=== PATIENT | male | born 1985 | race Caucasian/White ===

== ENCOUNTER 2022-05-15 16:44 | Emergency (ER) | payer MEDICAID, SELFPAY ==
[2022-05-15 16:56] VITALS: BP 159/92; PULSE 88; RESP 16; TEMP 36.6; O2SAT 96
--- NOTE | 2022-05-15 19:11 | ED.GENADULT ---
HPI - General Adult General Chief complaint: Skin/Abscess/Foreign Body Stated complaint: Rash on the back of R leg Time Seen by Provider: 05/15/22 18:42 History of Present Illness HPI narrative: This 36-year-old male comes in with an abscess in the posterior aspect of his right lower extremity just above the knee joint. He states that this started about 4- 5 days ago and has worsened since then. He was able to express some purulent fluid yesterday. He does not have any fevers. His symptoms have been worsening throughout this time. Related Data Home Medications Medication Instructions Recorded Confirmed No Known Home Medications 05/15/22 05/15/22 Allergies Allergy/AdvReac Type Severity Reaction Status Date / Time No Known Drug Allergies Allergy Verified 05/15/22 17:01 Review of Systems Status of ROS: Reports: 10 or more systems reviewed and unremarkable except as noted in History and below Narrative: Constitutional: No fevers, no weight gain or loss. Eyes: No discharge. No vision changes. HENT: No congestion, no sore throat, no ear pain. Cardiovascular: No chest pain, no palpitations. Respiratory: No shortness of breath, no wheezes, no cough. Gastrointestinal: No abdominal pain, no vomiting, no diarrhea. Genitourinary: No dysuria, no hematuria. Musculoskeletal: Normal range of motion. Skin: No rashes, no pruritis. Redness in the posterior aspect of his right lower extremity as described above. Neurological: No dizziness, weakness, sensory change, speech change. Endo/Heme/Allergies: No bruising or bleeding. No polydipsia. Pysch: no suicidality, no anxiety, no insomnia. All other systems reviewed and are negative. [facility] Social History Smoking Status: Former smoker Do you use any of these nicotine containing products: None Second hand tobacco smoke exposure: No How often do you have a drink containing alcohol: monthly or less How often do you have six or more drinks on one occasion: Never AUDIT-C Alcohol total score: 1 Non-prescribed substance use: denies use service: No Exam Narrative: Exam Narrative: Constitutional: Well-developed, well-nourished, no acute distress. HEENT: Normocephalic, atraumatic. Neck: Normal range of motion. Nontender. Supple. Heart: Intact distal pulses. Lungs: No chest discomfort. No wheezes, rhonchi, or rales. Abdomen: Nontender. Back: Normal range of motion. Extremities: Normal range of motion. No injury. Skin: No rash. Warm. No pallor. There is a large area of erythema and swelling with warmth in the posterior aspect of his right lower extremity just above the knee. There is an opening where there was some drainage but no continued drainage currently. The border of the erythema spans a diameter of approximately 15 cm. Neurologic: No altered sensation. No weakness. Alert and oriented. Psychiatric: No suicidality. No anxiety or depression. No insomnia. Nursing notes and vitals signs are reviewed. Const: Vital Signs, click to edit/add: Vital Signs - 24 hr 05/15/22 16:56 05/15/22 19:56 Temperature 97.9 F Pulse Rate [Pulse Oximeter] 88 100 Respiratory Rate 16 16 Blood Pressure [Ri ght Upper Arm] 159/92 H 139/94 H Pulse Oximetry 96 98 Oxygen Delivery Me thod Room Air Room Air Course Vital Signs Vital signs: Initial Vital Signs Temperature 97.9 F 05/15/22 16:56 Temperature Source Temporal Artery Scan 05/15/22 16:56 Pulse Rate 88 05/15/22 16:56 Pulse Rhythm 05/15/22 16:56 Respiratory Rate 16 05/15/22 16:56 Blood Pressure 159/92 H 05/15/22 16:56 Blood Pressure Mean 114 05/15/22 16:56 Blood Pressure Position Sitting 05/15/22 16:56 Pulse Oximetry 96 05/15/22 16:56 Oxygen Delivery Method 05/15/22 16:56 Vital Signs Temperature 97.9 F 05/15/22 16:56 Pulse Rate 88 05/15/22 16:56 Respiratory Rate 16 05/15/22 16:56 Blood Pressure 159/92 H 05/15/22 16:56 Pulse Oximetry 96 05/15/22 16:56 Oxygen Delivery Method 05/15/22 16:56 Temperature 97.9 F 05/15/22 16:56 Pulse Rate 100 05/15/22 19:56 Respiratory Rate 16 05/15/22 19:56 Blood Pressure 139/94 H 05/15/22 19:56 Pulse Oximetry 98 05/15/22 19:56 Oxygen Delivery Method 05/15/22 19:56 Medical Decision Making MDM Narrative Medical decision making narrative: This patient comes in with an abscess and surrounding cellulitis in the right lower extremity. I did use bedside ultrasound to evaluate for a drainable abscess. There was no such finding sufficient enough to warrant drainage at this time. He did receive an intramuscular injection of Rocephin 1 g. A prescription for Augmentin is provided. I describe signs and symptoms that would indicate a need for return and re-evaluation. Discharge Plan Discharge Clinical Impression: Abscess of skin or subcutaneous tissue Patient Disposition: Home, Self-Care Condition: Unchanged Additional Instructions: Take medication as prescribed. Follow up with MD or return if worsening. Prescriptions: No Action No Known Home Medications Follow Up/Referrals: Provider,Not a Local [Primary Care Provider] - Stand Alone Forms: [employer] Info Instructions
[2022-05-15] MEDS: LIDOCAINE 1% 5 ml (pf) 5 ML VIAL 2.1 ML IM (19:14)
[2022-05-15] MEDS: cefTRIAXone 1 GM VIAL IM (19:14)
[2022-05-15 19:56] VITALS: BP 139/94; PULSE 100; RESP 16; O2SAT 98
== END 2022-05-15 20:17 | disposition home or self-care (01) ==
PROVIDERS: Emergency Provider Emergency Medicine Emergency Medical Services
DX: L02.415 Cutaneous abscess of right lower limb (principal)
CPT/HCPCS: 96372; 99283; 99284; J0696

== ENCOUNTER 2024-06-12 13:53 | Emergency (ER) | payer MEDICAID, SELFPAY ==
--- OUTSIDE RECORDS SUMMARY | 2024-06-12 13:55 | XMS_ITS | Clinical Summary ---
Author Organization [facility] er Address [address] [place] [address] Care Team Providers Care Patient Coordinator Front Desk Name Role Phone None, Pcp Primary Care Provider Unavailabl e Allergies No known active allergies Medications nicotine (Nicoderm CQ) 14 MG/24HRIndicati ons:Tobacco use Place 1 patch on the skin 1 (one) time each day at the same time 30 patch 1 3 Active nicotine polacrilex (Nicorette) 4 MG gumIndications: Tobacco use Chew 1 each (4 mg total) if needed for smoking cessation 100 each 1 3 Active Active Problems No known active problems Immunizations Name Administration Dates Next Due Hep B, Adolescent or Pediatric 12/21/2002 Hepatitis B 12/21/2002 Tdap 04/17/2023,12/05/2012 Family History Medical History Relation Comments Cancer Father Small Cell Lung Cancer Relation Status Comments Brother Alive Father Mother Alive Sister 1 Alive Sister 2 Alive Son Alive Social History Tobacco Use Types Packs/Day Years Used Date Smoking Tobacco: Some Days Cigarettes Smokeless Tobacco: Never Tobacco Cessation:Ready to Q uit: Not Asked; Counseling Given: Not Answered Comments:Social smoking/vaping Alcohol Use Standard Drinks/Week Comments Not Currently 0 (1 standard drink = 0.6 oz pur e alcohol) Humiliation, Afraid, Rape, and Kick questionnair e Answer Date Recorded Within the last year, have y ou been afraid of your partner or ex-partner? No 04/17/2023 Within the last year, have y ou been humiliated or emotionally abused in other ways by your partner or ex-partner? No Within the last year, have y ou been kicked, hit, slapped, or otherwise physically hurt by your partner or ex-partner? No 04/17/2023 Within the last year, have y ou been raped or forced to have any kind of sexual activity by your partner or ex-partner? No 04/17/2023 Social Connection and Isolation Panel [NHANES] A nswer Date Recorded In a typical week, how many times do you talk on the phone with family, friends, or neighbors? Three times a week 04/17/20 How often do you get togethe r with friends or relatives? Twice a week 04/17/2023 How often do you attend chur or druze services? 1 to 4 times per year 04/17/2023 Do you belong to any clubs o r organizations such as islam groups, unions, fraternal or athletic groups, or school groups? Yes 04/17/2023 How often do you attend meet ings of the clubs or organizations you belong to? 1 to 4 times per year 04/17/2023 Are you , , di vorced, , never , or living with a partner? Living with partner 04/17/2023 AUDIT-C Answer Date Recorded Q1: How often do you have a drink containing alcohol? Never 04/17/2023 Q2: How many drinks containi ng alcohol do you have on a typical day when you are drinking? Patient does not drink Q3: How often do you have si x or more drinks on one occasion? Never 04/17/2023 Overall Financial Resource Strain (CARDIA) Answe r Date Recorded How hard is it for you to pa y for the very basics like food, housing, medical care, and heating? Hard 04/17/2023 PHQ-2 Answer Date Recorded PHQ-9 Total Score 1 04/17/2023 [facility] - Occupational Stress Questionnaire Answer Date Recorded Do you feel stress - tense, restless, nervous, or anxious, or unable to sleep at night because your mind is troubled all the time - these days? Not at all 04/17/2023 Exercise Vital Sign Answer Date Recorde d On average, how many days pe r week do you engage in moderate to strenuous exercise (like a brisk walk)? 5 days 04/17/2023 On average, how many minutes do you engage in exercise at this level? 60 min 04/17/2023 Hunger Vital Sign Answer Date Recorded Within the past 12 months, y ou worried that your food would run out before you got the money to buy more. Sometimes true Within the past 12 months, t he food you bought just didn't last and you didn't have money to get more. Sometimes true PRAPARE - Transportation Answer Date Re corded In the past 12 months, has l ack of transportation kept you from medical appointments or from getting medications? No 03/29 In the past 12 months, has l ack of transportation kept you from meetings, work, or from getting things needed for daily living? Yes 04/17/2023 Housing Stability Vital Sign Answer Noah e Recorded In the last 12 months, was t here a time when you were not able to pay the mortgage or rent on time? No 04/17/2023 In the last 12 months, how many places have you lived? 4 04/17/2023 In the last 12 months, was t here a time when you did not have a steady place to sleep or slept in a detention (including now)? Yes 04/17/2023 Sex and Gender Information Value Date Recorded Sex Assigned at Not on file Legal Sex Male 11:26 AM CDT Gender Identity Not on file Sexual Orientation Not on file Last Filed Vital Signs Vital Sign Reading Time Taken Comments Blood Pressure 120/80 04/17/2023 12:47 PM LIDDING MACHINE OPERATOR Pulse 92 04/17/2023 12:47 PM LIDDING MACHINE OPERATOR Temperature 36.3 C (97.4 F) 04/17/2023 12:47 PM LIDDING MACHINE OPERATOR Respiratory Rate 16 04/17/2023 12:47 PM LIDDING MACHINE OPERATOR Oxygen Saturation 97% 04/17/2023 12:47 PM LIDDING MACHINE OPERATOR Inhaled Oxygen Concentration - - Weight 93 kg (205 lb) 04/17/2023 12:47 PM LIDDING MACHINE OPERATOR Height 183 cm (6' 0.05) 04/17/2023 12:47 PM LIDDING MACHINE OPERATOR Body Mass Index 27.77 04/17/2023 12:47 PM LIDDING MACHINE OPERATOR Plan of Treatment Health Maintenance Due Date Last Done Comments Pneumococcal Vaccine: Pediatrics (0 to 5 Years) and At-Risk Patients (6 to 49 Years) (1 of 2 - PCV) 12/25/2006 COVID-19 Vaccine (2023-2 5 season) 2023 Influenza Vaccine (#1) 2023 DTaP,Tdap,and Td Vaccines (3 - Td or Tdap) 04/17/2033 04/17/2023, 12/05/2012 HPV Vaccines Aged Out No longer eligi ble based on patient's age to complete this topic Insurance [facility] [employer] Care Teams Patient Coordinator Front Desk Relationship Specialty Start Date End Date None, Pcp [address] [place] [address] PCP - General Agricultural Engineering Technicians 10/08/22
--- OUTSIDE RECORDS SUMMARY | 2024-06-12 13:55 | XMS_ITS | Clinical Summary ---
Author Organization [facility] Address [place], [place] [address] Care Team Providers Care Package Pick Up Name Role Phone Pcp, No Unavailable Unavailable Pcp, No Primary Care Provider Unavailabl e Allergies No known active allergies Medications No known medications Immunizations Name Administration Dates Next Due Hepatitis B (Adult) 12/21/2002 Tdap 12/05/2012 Family History Medical History Relation Name Comments Heart Disease Paternal Grandfather Relation Name Status Comments Brother Alive Father Alive Mother Alive Paternal Grandfather Sister 1 Alive Sister 2 Alive Social History Tobacco Use Types Packs/Day Years Used Date Smoking Tobacco: Every Day Cigarettes Smokeless Tobacco: Never Tobacco Cessation:Ready to Q uit: No; Counseling Given: Yes Comments:Patient education materials offered Alcohol Use Standard Drinks/Week Comments Yes 0 (1 standard drink = 0.6 oz pur e alcohol) Sex and Gender Information Value Date Recorded Sex Assigned at Not on file 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 Gender Identity Not on file Sexual Orientation Not on file Obstetrics History Last Filed Vital Signs Vital Sign Reading Time Taken Comments Blood Pressure 153/100 12/09/2017 11:56 AM CDT Pulse 84 12/09/2017 11:56 AM CDT Temperature 36.6 C (97.9 F) 12/09/2017 11:56 AM CDT Respiratory Rate 16 12/09/2017 11:5 6 AM CDT Oxygen Saturation 99% 12/09/2017 11: 56 AM CDT Inhaled Oxygen Concentration - - Weight 76.2 kg (167 lb 14.4 oz) 018 11:56 AM CDT Height 182.9 cm (6') 12/09/2017 11:56 AM CDT Body Mass Index 22.77 12/09/2017 11:56 AM CDT Plan of Treatment Health Maintenance Due Date Last Done Comments BMI (ht and wt on same day) for age 18+ 12/25/2005 Depression screening for age 12+ 11/16/2021 11/17/19 21 Tetanus booster 12/05/2022 12/05/2012 Lipids for age 35-44 12/25/2022 COVID-19 vaccine series (2023- season) 2023 Influenza for age 9-49 12/28/2023 Tdap Completed 12/05/2012 HIV for age 15-65 Completed 09/09/2013 Hepatitis C screening for ag e 18-79 Completed 09/09/2013 Pneumococcal series for age 6-49 Aged Out No longer eligible based on patient's age to complete this topic Procedures Procedure Name Priority Date/Time Associated Diagnosis Comments ANTI HIV 1/2 Routine 09/09/2013 3:45 PM CDT Screening for STD (sexually transmitted disease) ANTI HCV Routine 09/09/2013 3:45 PM CDT Screening for STD (sexually transmitted disease) from Last 3 Months or Most Recently Relevant to Health Maintenance Results * ANTI HCV (09/09/2013 3:45 PM CDT) HEPATITIS C ANTIBODY Non-Reacti ve Non-Reacti ve 09/09/2013 8:[address] [facility] Blood specimen (specimen) BLOOD SPECIMEN / Unknown Venipuncture / Unknown 09/09/2013 3:45 PM CDT 09/09/2013 3:45 PM CDT Narrative [facility] - 09/09/2013 8:32 PM CDT Antibodies to HCV not detected; does not exclude the possibility of exposure to HCV. us Dalia CHEUNG SEND OUTS Final Resu lt [facility] [address] [place] [address], [place] * ANTI HIV 1/2 (09/09/2013 3:45 PM CDT) HIV-1/HIV-2 ANTIBODY Non-Reacti ve Non-Reacti ve 09/09/2013 8:33 PM CDT [facility] Blood specimen (specimen) BLOOD SPECIMEN / Unknown Venipuncture / Unknown 09/09/2013 3:45 PM CDT 09/09/2013 3:45 PM CDT Narrative [facility] - 09/09/2013 8:33 PM CDT HIV-1 p24 and HIV-1/HIV-2 Ab not detected us Dalai CHEUNG SEND OUTS Final Resu lt [facility] [address] [place] [address], from Last 3 Months or Most Recently Relevant to Health Maintenance Insurance [id number] [facility] [place] [address] [facility] Care Teams Package Pick Up Relationship Specialty Start Date End Date Pcp, No . PCP - General 12/09/17 Pcp, No . 09/07/13
[2024-06-12 13:59] VITALS: BP 141/94; PULSE 94; RESP 18; TEMP 36.6; O2SAT 99; BMI 27.0
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
--- OUTSIDE RECORDS SUMMARY | 2024-06-12 14:47 | XMS_ITS | Clinical Summary ---
Author Organization [facility] er Address [address] [place] [address] Care Team Providers Care Industrial Health And Safety Professor Name Role Phone None, Pcp Primary Care [...] How often do you attend chur or episcopal services? 1 to 4 times per year 04/17/2023 Do you belong to any clubs o r organizations such as anabaptist groups, unions, fraternal or athletic groups, or [...] Date Recorded PHQ-9 Total Score 1 04/17/2023 [facility] - Occupational [...] place to sleep or slept in a jail (including now)? Yes 04/17/2023 Sex and Gender Information Value Date Recorded Sex Assigned at Not on file Legal Sex Male 11:26 AM CDT Gender Identity Not on file Sexual Orientation Not on file Last Filed Vital Signs Vital Sign Reading Time Taken Comments Blood Pressure 120/80 04/17/2023 12:47 PM BOOM TENDER Pulse 92 04/17/2023 12:47 PM BOOM TENDER Temperature 36.3 C (97.4 F) 04/17/2023 12:47 PM BOOM TENDER Respiratory Rate 16 04/17/2023 12:47 PM BOOM TENDER Oxygen Saturation 97% 04/17/2023 12:47 PM BOOM TENDER Inhaled Oxygen Concentration - - Weight 93 kg (205 lb) 04/17/2023 12:47 PM BOOM TENDER Height 183 cm (6' 0.05) 04/17/2023 12:47 PM BOOM TENDER Body Mass Index 27.77 04/17/2023 12:47 PM BOOM TENDER Plan of Treatment Health Maintenance Due Date [...] patient's age to complete this topic Insurance [facility] Care Teams Industrial Health And Safety Professor Relationship Specialty Start Date End Date None, Pcp [address] [facility] [place] [address] PCP - General Diesel Power Mechanic 10/08/22
--- OUTSIDE RECORDS SUMMARY | 2024-06-12 14:47 | XMS_ITS | Clinical Summary ---
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 us Dalia CHEUNG SEND OUTS Final Resu lt [facility] [address] [place] [address], [place] * ANTI HIV 1/2 (09/09/2013 3:45 PM CDT) HIV-1/HIV-2 ANTIBODY Non-Reacti ve Non-Reacti ve 09/09/2013 8:33 PM CDT [facility] Blood specimen (specimen) BLOOD SPECIMEN / Unknown Venipuncture / Unknown 09/09/2013 3:45 PM CDT 09/09/2013 3:45 PM CDT Narrative [facility] - 09/09/2013 8:33 PM CDT HIV-1 p24 and HIV-1/HIV-2 Ab not detected us Dalia CHEUNG SEND OUTS Final Resu lt [facility] [address] [place] [address], from Last 3 Months or Most Recently Relevant to Health Maintenance Insurance [id number] [facility] [place] [address] [facility] Care Teams Fisher Mussel Relationship Specialty Start Date End Date Pcp, No . PCP - General 12/09/17 Pcp, No . 09/07/13
== END 2024-06-12 15:07 | disposition home or self-care (01) ==
PROVIDERS: Emergency Provider Family Medicine
DX: S02.2XXA Fracture of nasal bones, initial encounter for closed fracture (principal); W50.0XXA Accidental hit or strike by another person, initial encounter
CPT/HCPCS: 70160; 99283

== ENCOUNTER 2024-06-18 13:07 | Day surgery (SDC) | payer MEDICAID, SELFPAY ==
[2024-06-18] VITALS (11 sets, daily range): BP systolic 124–142; BP diastolic 79–99; PULSE 53–79; RESP 14–20; TEMP 36.3–36.6; O2SAT 96–99; BMI 27.1
--- OUTSIDE RECORDS SUMMARY | 2024-06-18 13:09 | XMS_ITS | Clinical Summary ---
Author Organization [facility] er Address [address] [place] [id number] Care Team Providers Care Bar Finish Operator Name Role Phone None, Pcp Primary Care [...] How often do you attend chur or zoroastrianism services? 1 to 4 times per year 04/17/2023 Do you belong to any clubs o r organizations such as faith groups, unions, fraternal or athletic groups, or [...] Date Recorded PHQ-9 Total Score 1 04/17/2023 [facility] - Occupational [...] place to sleep or slept in a retirement (including now)? Yes 04/17/2023 Sex and Gender Information Value Date Recorded Sex Assigned at Not on file Legal Sex Male 11:26 AM CDT Gender Identity Not on file Sexual Orientation Not on file Last Filed Vital Signs Vital Sign Reading Time Taken Comments Blood Pressure 120/80 04/17/2023 12:47 PM TRANSACTION ADVISORY SERVICES MANAGER Pulse 92 04/17/2023 12:47 PM TRANSACTION ADVISORY SERVICES MANAGER Temperature 36.3 C (97.4 F) 04/17/2023 12:47 PM TRANSACTION ADVISORY SERVICES MANAGER Respiratory Rate 16 04/17/2023 12:47 PM TRANSACTION ADVISORY SERVICES MANAGER Oxygen Saturation 97% 04/17/2023 12:47 PM TRANSACTION ADVISORY SERVICES MANAGER Inhaled Oxygen Concentration - - Weight 93 kg (205 lb) 04/17/2023 12:47 PM TRANSACTION ADVISORY SERVICES MANAGER Height 183 cm (6' 0.05) 04/17/2023 12:47 PM TRANSACTION ADVISORY SERVICES MANAGER Body Mass Index 27.77 04/17/2023 12:47 PM TRANSACTION ADVISORY SERVICES MANAGER Plan of Treatment Health Maintenance Due Date [...] patient's age to complete this topic Insurance [facility] Care Teams Bar Finish Operator Relationship Specialty Start Date End Date None, Pcp [address] [place] [address] PCP - General Bag Builder 10/08/22
--- OUTSIDE RECORDS SUMMARY | 2024-06-18 13:09 | XMS_ITS | Clinical Summary ---
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 us Dalia CHEUNG SEND OUTS Final Resu lt [facility] [address] [place] [address], [place] * ANTI HIV 1/2 (09/09/2013 3:45 PM CDT) HIV-1/HIV-2 ANTIBODY Non-Reacti ve Non-Reacti ve 09/09/2013 8:33 PM CDT [facility] Blood specimen (specimen) BLOOD SPECIMEN / Unknown Venipuncture / Unknown 09/09/2013 3:45 PM CDT 09/09/2013 3:45 PM CDT Narrative [facility] - 09/09/2013 8:33 PM CDT HIV-1 p24 and HIV-1/HIV-2 Ab not detected us Dalia CHEUNG SEND OUTS Final Resu lt [facility] [address] [place] [address], from Last 3 Months or Most Recently Relevant to Health Maintenance Insurance [id number] [facility] [place] [place] [id number] [facility] Care Teams Pipe Setter Relationship Specialty Start Date End Date Pcp, No . PCP - General 12/09/17 Pcp, No . 09/07/13
[2024-06-18] MEDS: SODIUM CHLORIDE 0.9 % (FLUSH) 10 ML SYRINGE IVF (13:15)
[2024-06-18] MEDS: LACTATED RINGERS 1000 ML 1,000 ML 100 ML IV (13:15)
[2024-06-18] MEDS: OXYMETAZOLINE 0.05% NASAL SPRAY 2 SPRAY NOSTRIL-B (13:30)
[2024-06-18] MEDS: OXYMETAZOLINE (AFRIN) SOAK 1 EACH TOPICAL (14:39)
[2024-06-18] MEDS: MUPIROCIN 1 GM PACKET 1 APPLIC TOPICAL (14:43)
[2024-06-18] MEDS: BUPIVACAINE 0.5%/EPINEPHRINE 0.9 MG (30.9 ML) INJECTION (14:55)
--- NOTE | 2024-06-18 14:57 | W.PM.ENTPROC ---
Procedure Note Date of procedure: 06/18/24 Procedure: Preop diagnosis depressed left nasal fracture, lateralize right nasal bone, septal deviation, nasal obstruction Postoperative diagnosis same Procedure closed reduction nasal fracture, nasal septoplasty Under general trach anesthesia patient was prepped draped usual fashion the nose decongested injected. I attempted to manipulate the septum back to midline with a nasal speculum but that did not work at all. A right hemitransfixion incision was made left anterior and posterior tunnels were created a vertical incision was made through the cartilage and a right posterior tunnel created. Posterior deflected portions of septal bone and a large were removed the large piece was trimmed and returned to intraseptal space. The hemitransfixion was closed with 2 4-0 chromic sutures. The lateralized right nasal bone was easily reduced with digital pressure. The depressed fracture on the left was marked externally with the fracture elevator and then elevated. This bone was quite loose so Merocel packing coated in Bactroban was placed beneath the fracture line to attempt to hold it into good position. Silastic stents were secured on either side the septum with 3-0 nylon and a dissolvable gel pack was placed on the right. He has 2 strips of Merocel packing on the left side. Patient procedure well was taken recovery satisfactory condition. Blood loss was less than 10 mL. Surgeon: Kevin Meadows MD
--- NOTE | 2024-06-18 15:08 | W.ANESCHARGE ---
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
--- NOTE | 2024-06-18 15:13 | W.ANESCHARGE ---
Anesthesia Charges Start Date/Time Anesthesia Start Date: 06/18/24 Anesthesia Start Time: 14:25 Stop Date/Time Anesthesia Stop Date: 06/18/24 Anesthesia Stop Time: 15:12 Coding CPT Codes CPT Codes: ANESTH NOSE/SINUS SURGERY - 97436 ([id number]) P1 - NORMAL HEALTHY PATIENT, QK - SPORTS JOURNALIST 2-4 CNCRNT ANES PROC, QX - DRAMATIC AGENT SVIvy W/ MED DIRECTION
[2024-06-18] MEDS: fentaNYL 100 MCG/2 ML inj 50 MCG IVP (15:18)
[2024-06-18] MEDS: OXYCODONE 5 MG TABLET PO (16:00)
== END 2024-06-18 16:22 | disposition home or self-care (01) ==
PROVIDERS: Visit Provider Otolaryngology
PROC: 0NSBXZZ Reposition Nasal Bone, External Approach (ICD-10-PCS; CPT 30520; principal; 2024-06-18 14:30)
PROC: (CPT 30520; 2024-06-18 14:30)
DX: S02.2XXA Fracture of nasal bones, initial encounter for closed fracture (principal); J34.2 Deviated nasal septum; J34.89 Other specified disorders of nose and nasal sinuses
CPT/HCPCS: 30520; 00160; A9270; J1100; J2250; J2405; J2704; J2710; J3010; J7120